=== PATIENT | male | born 1965 | race Caucasian/White ===

== ENCOUNTER 2018-06-06 19:06 | Outpatient (REF) | payer MEDICARE, SELFPAY ==
[2018-06-06 19:33] LABS: Anion Gap 5.7 mmol/L (3-11); BUN 18 mg/dL (7-18); CO2 28.3 mmol/L (21.0-32.0); CREATININE 0.79 mg/dL (0.70-1.30); Calcium 8.6 mg/dL (8.5-10.1); Chloride 104 mmol/L (98-107); Glucose 87 mg/dL (70-100); Potassium 4.1 mmol/L (3.5-5.1); Sodium 138 mmol/L (136-145)
[2018-06-11 13:25] LABS: ALT 35 U/L (12-78)
== END 2018-06-06 19:26 ==
LOC: NCHCN 19:06
PROVIDERS: PCP Physician Assistant Medical; Visit Provider Internal Medicine
DX: E78.5 Hyperlipidemia, unspecified (principal); F43.29 Adjustment disorder with other symptoms; Z87.820 Personal history of traumatic brain injury
CPT/HCPCS: 80048; 84460

== ENCOUNTER 2018-09-09 16:00 | Outpatient (REF) | payer MEDICARE, SELFPAY ==
[2018-09-13 11:57] LABS: Amphetamine Negative ng/mL (Cutoff: 25); Amphetamines Interpretation Negative.; MDA (Ecstasy Metabolite) Negative ng/mL (Cutoff: 25); MDMA (Ecstasy) Negative ng/mL (Cutoff: 25); Methamphetamine Negative ng/mL (Cutoff: 25); Phentermine Negative ng/mL (Cutoff: 25); Pseudoephedrine/Ephedrine Negative ng/mL (Cutoff: 25)
== END 2018-09-09 16:20 ==
LOC: NCHCN 16:00
PROVIDERS: PCP Physician Assistant Medical; Visit Provider Internal Medicine
DX: Z51.81 Encounter for therapeutic drug level monitoring (principal); F15.20 Other stimulant dependence, uncomplicated
CPT/HCPCS: 80324

== ENCOUNTER 2019-06-09 16:16 | Outpatient (REF) | payer MEDICARE, SELFPAY ==
[2019-06-09 18:59] LABS: HCT 42.6 % (40.0-50.0); HGB 14.4 g/dL (13.5-17.5); Mean Corp. HGB Concentration 33.8 g/dL (32.0-36.0); Mean Corpuscular Hemoglobin 30.4 pg (27.0-33.0); Mean Corpuscular Volume 90.1 fL (80-95); Platelet Count 275 x1000/uL (130-400); RBC 4.73 m/cumm (4.50-6.00); RBC Distribution Width 12.5 % (11.8-14.1); White Blood Cell Count 7.19 k/cumm (4.4-10.8)
[2019-06-09 20:04] LABS: TSH 2.24 uIU/mL (0.36-3.74)
[2019-06-16 20:51] LABS: Methylphenidate 60 ng/mL; Ritalinic Acid >10000 ng/mL
== END 2019-06-09 16:36 ==
LOC: NCHCN 16:16
PROVIDERS: PCP Physician Assistant Medical; Visit Provider Internal Medicine
DX: R53.83 Other fatigue (principal); F43.29 Adjustment disorder with other symptoms
CPT/HCPCS: 80360; 85027; 84443

== ENCOUNTER 2020-05-19 17:45 | Outpatient (REF) | payer MEDICARE, SELFPAY ==
[2020-05-19 22:52] LABS: ALT 39 U/L (16-63); Anion Gap 7.4 mmol/L (3-11); BUN 13 mg/dL (7-18); CO2 27.6 mmol/L (21.0-32.0); CREATININE 0.72 mg/dL (0.70-1.30); Calcium 8.9 mg/dL (8.5-10.1); Chloride 106 mmol/L (98-107); Glucose 116 mg/dL (74-106); LDL CHOLESTEROL 64 mg/dL (<100); Potassium 3.8 mmol/L (3.5-5.1); Sodium 141 mmol/L (136-145)
== END 2020-05-19 18:05 ==
LOC: NCHCN 17:45
PROVIDERS: PCP Physician Assistant Medical; Visit Provider Internal Medicine
DX: E66.3 Overweight (principal); M54.5 Low back pain
CPT/HCPCS: 80048; 83721; 84460

== ENCOUNTER 2020-11-12 18:45 | Outpatient (REF) | payer MEDICARE, SELFPAY ==
[2020-11-15 12:52] LABS: COVID-19 RT-PCR UVMMC Result Negative (Negative)
== END 2020-11-12 18:46 | disposition home or self-care (01) ==
LOC: NCHCN 18:45
PROVIDERS: PCP Physician Assistant Medical; Visit Provider Internal Medicine
DX: Z20.822 Contact with and (suspected) exposure to COVID-19 (principal)
CPT/HCPCS: U0003

== ENCOUNTER 2021-08-24 20:38 | Outpatient (REF) | payer MEDICARE, SELFPAY ==
[2021-08-24 21:19] LABS: ALT 34 U/L (16-63); Anion Gap 7.4 mmol/L (3-11); BUN 17 mg/dL (7-18); CO2 29.6 mmol/L (21.0-32.0); CREATININE 0.8 mg/dL (0.70-1.30); Calcium 8.4 mg/dL (8.5-10.1); Chloride 106 mmol/L (98-107); Glucose 107 mg/dL (74-106); LDL CHOLESTEROL 72 mg/dL (<100); Potassium 4.3 mmol/L (3.5-5.1); Sodium 143 mmol/L (136-145)
== END 2021-08-24 20:39 | disposition home or self-care (01) ==
LOC: LBN 20:38
PROVIDERS: PCP Physician Assistant Medical; Visit Provider Internal Medicine
DX: I10 Essential (primary) hypertension (principal); E78.5 Hyperlipidemia, unspecified
CPT/HCPCS: 80048; 83721; 84460

== ENCOUNTER 2022-12-21 15:37 | Outpatient (REF) | payer MEDICARE, SELFPAY ==
[2022-12-21 19:44] LABS: ALT 32 U/L (16-63); Anion Gap 7.3 mmol/L (3-11); BUN 15 mg/dL (7-18); C-Reactive Protein 0.59 mg/dL (0.0-0.3); CO2 25.7 mmol/L (21.0-32.0); Calcium 8.9 mg/dL (8.5-10.1); Chloride 105 mmol/L (98-107); Estimated GFR 87.78 (mL/min/1.73m2); Glucose 126 mg/dL (74-106); Potassium 3.9 mmol/L (3.5-5.1); Sodium 138 mmol/L (136-145)
[2022-12-21 20:06] LABS: Calculated LDL 58 mg/dL (<100); Cholesterol 127 mg/dL (<200); HDL Cholesterol 56 mg/dL (40-60); Triglyceride 65 mg/dL (<150)
== END 2022-12-21 15:38 | disposition home or self-care (01) ==
LOC: NCHCN 15:37
PROVIDERS: PCP Physician Assistant Medical; Visit Provider Internal Medicine
DX: I10 Essential (primary) hypertension (principal); F43.29 Adjustment disorder with other symptoms; I63.89 Other cerebral infarction
CPT/HCPCS: 80048; 80061; 84460; 86140

== ENCOUNTER 2023-12-17 13:15 | Outpatient (REF) | payer MEDICARE, SELFPAY ==
[2023-12-17 20:07] LABS: ALT 35 U/L (16-63); Anion Gap 7.1 mmol/L (3-11); BUN 13 mg/dL (7-18); CO2 27.9 mmol/L (21.0-32.0); CREATININE 0.8 mg/dL (0.70-1.30); Calcium 8.7 mg/dL (8.5-10.1); Chloride 103 mmol/L (98-107); Creatine Kinase 205 U/L (39-308); Estimated GFR 102.58 (mL/min/1.73m2); Glucose 115 mg/dL (74-106); Potassium 3.7 mmol/L (3.5-5.1); Sodium 138 mmol/L (136-145); TSH 1.94 uIU/Ml (0.36-3.74)
[2023-12-18 18:27] LABS: PSA, Diagnostic 0.7 ng/mL (<=3.5)
[2023-12-18 18:58] LABS: Hepatitis C Ab w Rflx HCV PCR Negative (Negative)
[2023-12-18 19:00] LABS: HIV-1/2 Ag & Ab Screen Negative (Negative)
== END 2023-12-17 13:16 | disposition home or self-care (01) ==
LOC: NCHCN 13:15
PROVIDERS: PCP Physician Assistant Medical; Visit Provider Internal Medicine
DX: R73.9 Hyperglycemia, unspecified (principal); Z11.4 Encounter for screening for human immunodeficiency virus [HIV]; I10 Essential (primary) hypertension
CPT/HCPCS: 80048; 82550; 86803; 87389; 83036; 84153; 84443; 84460

== ENCOUNTER 2025-03-18 10:03 | Emergency (ER) | payer MEDICARE, SELFPAY ==
[2025-03-18 10:18] VITALS: BP 157/78; PULSE 64; RESP 18; TEMP 36.6; O2SAT 97
--- NOTE | 2025-03-18 10:38 | ED.GENADUL_ITS ---
Discharge Plan Disposition Patient Disposition: Home Condition: Good Discharge Details Clinical Impression: Left arm weakness, Left leg weakness, Alterations of sensations Primary Care Provider: Adam Finch ED Provider: Yaquelin Bolivar Home Meds and New Rx's Prescriptions: Continued epinephrine 0.3 mg/0.3 mL auto-injector 0.3 mg subcut ONCE PRN Patient Comments: USE DIRECTED FOR BEE STING ibuprofen 600 mg tablet 600 mg PO Q6H PRN rosuvastatin 10 mg tablet 10 mg PO DAILY bupropion HCl 150 mg tablet extended release 24 hr 150 mg PO DAILY Patient Comments: TAKE 1 TABLET BY MOUTH ONCE DAILY methylphenidate HCl 30 mg capsule, ER biphasic 30-70 30 mg PO DAILY Discharge Instructions Instructions: Paresthesia (DC) Additional Instructions: As we discussed, your MRI and CTA are reassuring here today. No evidence to suggest a stroke. However, I am concerned that you may have a issue with your cervical spine such as a bulging disc. I have spoken with your primary care who is going to help arrange for a follow-up MRI of your cervical spine. Please continue to monitor your symptoms. Please avoid activities that exacerbate these at all. Please follow-up with primary care in 1 week for reevaluation. If you develop any new or worsening symptoms please seek care urgently once again. Referrals: Garrick Steele [ NON-[facility] STAFF PHYSICIAN, Medicine] Discharge Data Discharge Date/Time-TO BE ENTERED AT DEPARTURE: 03/18/25 16:28 HPI General Date/Time Provider Initiated Documentation: 03/18/25 10:38 . Limitations to Documentation: no limitations . Information obtained by: patient and RN notes reviewed . History of Present Illness 59 year old M presents to the emergency department with the chief complaint of left upper and lower extemity numbness and weakness, described as mild, Quality is described as other (denies any pain), and is localized to the left, upper extremity and lower extremity. Patient started experiencing this week(s) (3) and it has been constant. No relieving factors improve symptom(s), No exacerbating factors reported . Patient notes weakness; denies chest pain, cough, fever/chills, loss of appetite, nausea/vomiting, rash and shortness of breath. Patient did receive the following treatments prior to arrival, none Related Data Home Medications ?Medication ?Instructions ?Recorded ?Confirmed bupropion HCl 150 mg 24 hr tablet, 150 mg PO DAILY 06/0403/18/25 extended release epinephrine 0.3 mg/0.3 mL 0.3 mg subcut ONCE PRN 03/1803/18/25 injection, auto-injector ibuprofen 600 mg tablet 600 mg PO Q6H PRN 03/18/25 0 03/18/25 methylphenidate HCl 30 mg biphasic 30 mg PO DAILY 06/0403/18/25 30-70 capsule,extended release rosuvastatin 10 mg tablet 10 mg PO DAILY 03/18/2506/04 Allergies Allergy/AdvReac Type Severity Reaction Status Date / Time bee venom protein (honey bee) Allergy Anaphylaxis Verified 03/18/25 10:22 General Stated Complaint: GenMedical ENMANUEL: 3 Review of Systems Constitutional Constitutional: Reports as per HPI, Denies chills, Denies fever(s) and Denies frequent falls Eyes Eyes: Reports as per HPI and Denies change in vision ENT Ears, Nose, Mouth, and Throat: Denies vertigo and Denies neck pain Cardiovascular Cardiovascular: Reports as per HPI, Denies chest pain, Denies lightheadedness, Denies dyspnea and Denies dyspnea on exertion Respiratory Respiratory: Reports as per HPI, Denies chest congestion, Denies cough, Denies dyspnea and Denies dyspnea on exertion Gastrointestinal Gastrointestinal: Reports as per HPI, Denies abdominal pain, Denies change in bowel habits, Denies nausea and Denies vomiting Genitourinary Genitourinary: Reports system reviewed and no additional complaints, except as documented (denies change in urinary habits) Musculoskeletal Musculoskeletal: Reports as per HPI, Denies myalgias, Denies muscle cramps and Denies neck pain Integumentary/Breasts Skin/Breast: Reports as per HPI and Denies rash Neurologic Neurologic: Reports as per HPI, Denies abnormal movements, Denies abnormal speech, Denies behavioral changes, Denies confusion, Denies vertigo and Denies frequent falls Psychiatric Psychiatric: Denies behavioral changes and Denies confusion Exam Const General: cooperative, healthy appearing, no acute distress, well developed and well groomed Nutritional Appearance: average body habitus and well nourished Orientation: alert, awake and oriented x3 HENMT Head: normal to inspection, no palpable skull fracture, normocephalic and atraumatic Ears: hearing grossly normal bilaterally Mouth: oral mucosae normal and moist mucous membranes Throat: posterior oropharynx normal Eyes General: appearance normal, both eyes and all related structures Alignment and Position: alignment normal Periorbital: periorbital findings normal Eyelids: eyelids normal Sclera: sclerae normal Cornea: corneas normal Pupils: PERRL EOM: EOM intact bilaterally Neck Neck: normal visual inspection, full ROM and no lymphadenopathy Resp Effort & Inspection: normal respiratory effort, able to speak in complete sentences and no respiratory distress Auscultation: clear to auscultation bilaterally, no rales, no rhonchi and no wheezes Cardio Rate: regular rate Rhythm: regular rhythm Heart Sounds: S1 normal and S2 normal Back/Spine/Pelvis Cervical Spine: normal cervical lordosis and cervical ROM normal Skin General skin exam: no rashes or lesions noted Neuro General: patient alert, patient awake and patient oriented x3 Cranial Nerves: CN's II-XI intact bilaterally Cognition: normal cognition Speech: speech normal Gait: normal gait Motor: no pronator drift, no movement abnormalities noted, no fasciculations and muscle tone abnormal (strength decreased int eh left upper and lower extremities compared to righ) Sensory Exam: no sensory deficits noted DTR's: Rt Patellar: 2+, Lt Patellar: 2+, Rt Ankle: 2+ and Lt Ankle: 2+ Plantar Reflexes: Downgoing: bilateral Coordination: muetth-so-owkh test normal, Romberg test normal, Does not sway with eyes open and rapid alternating movement UE normal Extrem General: normal to inspection, capillary refill normal, no pedal edema and no calf tenderness Course Vital Signs Vital signs: Vital Signs Temperature 36.6 C 03/18/25 10:18 Pulse 64 03/18/25 10:18 Respiratory Rate 18 03/18/25 10:18 Blood Pressure 157/78 H 03/18/25 10:18 Pulse Oximetry 97 03/18/25 10:18 Temperature 36.6 C 03/18/25 10:18 Pulse 64 03/18/25 10:18 Respiratory Rate 18 03/18/25 10:18 Blood Pressure 157/78 H 03/18/25 10:18 Pulse Oximetry 97 03/18/25 10:18 Pain Level 6 03/18/25 10:18 Medical Decision Making Patient is a pleasant 59-year-old gentleman presenting today with chief complaint of left-sided weakness and altered sensation. His past medical history significant for CVA which was deemed to be a provoked incident after having arm trauma, no longer on anticoagulation, also his history of TBI. He reports that the left-sided sensory changes began about 3 weeks ago, initially just to the left leg. Subsequently developed some weakness in the left lower leg as well as some testicular sensory changes. He has not had any change in his bowel or bladder habits. No incontinence or difficulty initiating. Also started having some left arm numbness, tingling and weakness about 2 weeks ago. He reports that now he is having some back discomfort, does have history of spinal surgery. He denies any headache. No visual change. He does have chronic speech alteration which he associates with his previous CVA, no acute change in this. He denies any confusion or difficulty with word finding. States that his balance has been off but unclear if this associated with tripping with balance or from the left leg being weaker and alteration in gait. On exam, patient appears nontoxic. Resting comfortably no acute distress. Normal cardiac and pulmonary exam. He denies any palpitation, chest pain or shortness of breath. Neuroexam significant for weakness in the left lower extremity. Reflexes are equal bilaterally in upper and lower extremities. Sensation is intact in upper and lower extremities although he does describe this altered sensation in both the left upper and lower extremity patient is able to ambulate but does have some difficulty with the left leg and having some weakness. His Romberg is normal. Normal Babinski. With the patient's left-sided deficits, and primarily concern for recurrent CVA. Patient is well outside of the window for tPA as he is been having the symptoms for 3 weeks. However, will obtain labs, CTA of the head and neck to evaluate for any potential LVO or physical damage. Patient is not anticoagulated. He did take his medications this morning.. Labs reviewed, no acute abnormality. CTA reviewed by radiologist. She noted 50% stenosis left ICA, left MCA also severely narrowed. Old infarcts, appears older than three weeks per radiologist. This would not fit with his clinic picture as his symptoms are on the ipsilateral side. Will consult with [facility], they should have his previous imaging for comparison. Patient seen by teleneuro with [facility], they advised ASA and MRI. Recommended morning lipid profile, starting statin. Recommend echo but advised that, based on MR, this could be outpatient. Patient has had some muscles spasms to the left lower back, palpable. No midline pain. He has had lumbar surgery int eh past- incisions have healed well. On discussion, this discomfort began since his LLE weakness has increased- likely associated with antalgic gait and muscle spasm. Given APAP and LIdoderm patch. MRI reviewed by radiologist, he called and again reported the old infarct left side but nothing on the right. Again, with kezia symptoms being on the left, his old infarct on kezia left should not explain his acute weakness on the left upper and lower extremities. Will consult with [facility] neurology regarding atypical presentation and update regarding MRI findings. Consulted with Dr. Huddleston from [facility] did not feel appropriate ot add anything new from tele-neuro. Advised outpatient MRI is fine for c-spine evaluation. With no indication of CVA at this time, will hold off on dualantiplatelet that had been initially discussed. However, teleneuro did feel that anyone with prior CVA should at least be on ASA so will have patient continue wiht this recommendation. Called patients PCP, Dr. Steele regarding presentation and relay recommendations for MRI of his c-spine. discussed with patient at [facility]- he feels safe to go home and f/u with PCP. No sigfnicant deterioration over the past 3 weeks but we did discuss the potential of things worsening if appropriate followup is not completed. Pain improved some with APAP and Lidoderm patch. Encouraged supportive care, that he monitor symptoms closely. Return precautions discussed. All of his questions and concerns were addressed, he is in agreement with this [facility] All Active Problems (Updated 03/18/25 @ 16:04 by KRISTINE Powell) Alterations of sensations (Acute) Left leg weakness (Acute) Left arm weakness (Acute) Social History Smoking/Tobacco Use Status: Never Smoking risk assessment performed?: Yes Alcohol Intake: never Substance use type: does not use Housing: house Do you feel safe at home: Yes Do you feel safe in your relationship?: Yes
--- NOTE | 2025-03-18 11:00 | DI.RAD_ITS ---
Exam(s) XR CHEST 2V PA LATERAL EXAM: XR CHEST 2V PA LATERAL CLINICAL HISTORY: left sided weakness TECHNIQUE: 2D digital imaging was performed. Two views. COMPARISON: No exams were available for comparison FINDINGS: HEART: Normal size. Aorta: Not dilated. PULMONARY VASCULATURE: Normal. MEDIASTINUM: Unremarkable. LUNGS: Clear. PLEURAL SPACE: No pleural effusion or pneumothorax. BONE:Unremarkable for age. SOFT TISSUES: Unremarkable. IMPRESSION: No acute abnormality. DATA REPOSITORY: RADIATION DOSE DELIVERED:
--- NOTE | 2025-03-18 11:00 | RT.EKG_ITS ---
APPROVED REPORT Exam: Resting ECG Reason for Exam: possible cva Patient Location: E HR:47 bpm ECG Measurements Heart Rate 47 AXIS SD 153 P 55 QRSd 126 QRS -28 QT 457 T 27 QTc 406 Conclusion Sinus bradycardia 47 RBBB no stemi
--- NOTE | 2025-03-18 11:00 | DI.CT_ITS ---
Exam(s) CT BRAIN NECK CTA EXAM: CT BRAIN NECK CTA CLINICAL HISTORY: left sided weakness, altered sensation x 3wks. TECHNIQUE: Imaging Protocol: Axial CT angiography was performed with multi- slice acquisition and multi-planar and MIP reconstructions. CONTRAST MATERIAL: Intravenous: Omnipaque 350 Contrast volume:100 ml COMPARISON: No exams were available for comparison FINDINGS: CT Head W/O and W contrast: Ventricles and Extra axial spaces: Normal in size and morphology for the patient's age. Hemorrhage: None. Cerebral parenchyma: No evidence of mass. Large area of decreased attenuation is noted in the left frontal as well as left parietal lobes, both in the middle cerebral artery distribution. Midline shift: None. Brainstem/Cerebellum: No acute findings.. Calvarium: Normal. Visualized Paranasal sinuses/Mastoids: Clear. Soft Tissues: Unremarkable. Enhancement: Normal. Venous sinuses are patent. CTA Brain W: Internal Carotid Arteries: Right: No aneurysm, occlusion or significant stenosis. Left: No aneurysm, occlusion or significant stenosis. Middle Cerebral Arteries: Right: No aneurysm, occlusion or significant stenosis. Left: No aneurysm. Significantly decreased diameter of the M1 segment in D decreased perfusion to distal branches. Anterior Cerebral Arteries: Right: No aneurysm, occlusion or significant stenosis. Left: No aneurysm, occlusion or significant stenosis. Posterior cerebral Arteries: Right: No aneurysm, occlusion or significant stenosis. Left: No aneurysm, occlusion or significant stenosis. Vertebral Arteries: Right: No aneurysm, occlusion or significant stenosis. Left: No aneurysm, occlusion or significant stenosis. Basilar Artery: No aneurysm, occlusion or significant stenosis. CTA Neck W: Common Carotid: Right: No dissection, occlusion or significant stenosis. Left: No dissection, occlusion or significant stenosis. External Carotid: Right: No dissection, occlusion or significant stenosis. Left: No dissection, occlusion or significant stenosis. Internal Carotid: Right: No dissection, occlusion or significant stenosis. Left: Noncalcified plaque noted of the proximal internal carotid artery causing approximately 50 percent stenosis. No dissection, occlusion or significant stenosis. Vertebral Artery: Right: No dissection, occlusion or significant stenosis. Left: No dissection, occlusion or significant stenosis. Lung Apices: No acute findings. Bones: No acute abnormality. Advanced degenerative changes are present in the cervical spine Soft Tissues: Normal. IMPRESSION: 1. CTA brain: Severe narrowing of the left middle cerebral artery and diminished caliber of branch segments. 2. Head CT: Areas of old infarct in the left frontal and left parietal lobes. No acute infarct is visible. 3. CTA neck: Focal noncalcified plaque at the proximal left internal carotid artery causing approximately 50 percent stenosis. Results of this exam have been verbally communicated with the emergency department provider. RADIATION DOSE DELIVERED: Total DLP DATA REPOSITORY: All CT scans at this facility are submitted to the National Radiology Data Registry (NRDR) Dose Index Registry (DIR) with the [employer] (ACR). RADIATION OPTIMIZATION: All CT scans at this facility use at least one of these dose optimization techniques: automated exposure control; mA and/or kV adjustment per patient size (includes targeted exams where dose is matched to clinical indication); or iterative reconstruction.
[2025-03-18 11:21] LABS: Abs Immature Grans 0.01 10^3/uL (0.0-0.06); HCT 44.5 % (40.0-50.0); HGB 14.8 g/dL (13.5-17.5); Immature Grans % 0.2 %; MCH 29.8 pg (27.0-33.0); MCHC 33.3 % (32.0-36.0); MCV 90 fL (80-95); MPV 9.5 fL (8.0-11.0); Platelet Count 245 10^3/uL (130-400); RBC 4.96 10^6/uL (4.36-5.78); RDW 12.3 % (11.8-14.1); RDW-SD 39.8 fL; WBC 6.18 10^3/uL (4.4-10.8)
[2025-03-18 11:39] LABS: ALT 29 U/L (16-63); AST 18 U/L (15-37); Albumin 4.0 g/dL (3.4-5.0); Alkaline Phosphatase 99 U/L (46-116); Anion Gap 8.9 mmol/L (3-11); BUN 19 mg/dL (7-18); Bilirubin, Total 0.5 mg/dL (0.2-1.0); CO2 27.1 mmol/L (21.0-32.0); Calcium 8.9 mg/dL (8.5-10.1); Chloride 105 mmol/L (98-107); Estimated GFR 106.14 (mL/min/1.73m2); Glucose 110 mg/dL (74-106); Magnesium 1.8 mg/dL (1.8-2.4); Potassium 4.0 mmol/L (3.5-5.1); Sodium 141 mmol/L (136-145); Total Protein 7.1 g/dL (6.4-8.2); Troponin I 10 ng/L (<or=76)
[2025-03-18] MEDS: Normal Saline - Diluent 50 ML VIAL IJ (12:19)
[2025-03-18] MEDS: Omnipaque 350 MG/ML 100 ML BTL IJ (12:21)
[2025-03-18 12:51] VITALS: BP 132/57
--- NOTE | 2025-03-18 13:15 | DI.MRI_ITS ---
Exam(s) MR BRAIN WO EXAM: MR BRAIN WO CLINICAL HISTORY: concern for CVA, left sided deficit TECHNIQUE: Multiplanar multisequence MRI of the brain was performed. COMPARISON: CT CT BRAIN NECK CTA from 03/18/2025 FINDINGS: CEREBRAL PARENCHYMA: No evidence of intracranial hemorrhage. There is prominent area of signal abnormality in the left frontal-parietal region-territory of the left middle cerebral artery. Flow void in the left middle cerebral artery is noted to be deficient beyond the origin of this vessel. There is mild dilatation of the ipsilateral left lateral ventricle. There is no restricted diffusion, implying that this is not an acute event and is late subacute or chronic. There is no evidence of hemorrhage, intra or extra-axial. No shift of midline structures. No significant signal abnormality in the right-side of the brain. PITUITARY GLAND: No mass nor parasellar abnormality. No obvious abnormality in the cavernous sinuses. FLOW VOIDS: Left middle cerebral artery is occluded at its origin. PARANASAL SINUSES: Mucosal thickening/fluid is noted in left side of the sphenoid sinus. Other paranasal sinuses are clear as are the mastoid air cells. ORBITS: No obvious findings. IMPRESSION: There is infarction in the territory of the left middle cerebral artery which is not acute as there is no restricted diffusion. Probably late subacute. No hemorrhage. No shift. The left middle cerebral artery is occluded at its origin. Report called by myself to ER physician 03/18/2025 at 2:45 p.m. DATA REPOSITORY:
[2025-03-18] MEDS: Aspirin 325 MG TAB PO (13:37)
[2025-03-18] MEDS: Acetaminophen 500 MG TAB 1000 MG PO (14:55)
[2025-03-18] MEDS: Lidocaine 5% Patch 1 PATCH TP (14:56)
[2025-03-18 16:08] VITALS: BP 166/82; PULSE 49; RESP 16; TEMP 37; O2SAT 98
== END 2025-03-18 16:28 | disposition home or self-care (01) ==
PROVIDERS: Emergency Provider Physician Assistant; PCP Physician Assistant Medical
DX: M79.605 Pain in left leg (principal); R29.898 Other symptoms and signs involving the musculoskeletal system; R20.8 Other disturbances of skin sensation; I10 Essential (primary) hypertension
CPT/HCPCS: 99284; 99285; 36415; 70496; 70498; 80053; 93005; 70551; 71046; 83735; 84484; 85025; 93010; J3490

== ENCOUNTER 2025-04-20 01:39 | Outpatient (CLI) | payer MEDICARE, SELFPAY ==
--- NOTE | 2025-04-20 | DI.MRI_ITS ---
Exam(s) MR CERVICAL SPINE WO EXAM: MR CERVICAL SPINE WO CLINICAL HISTORY: G95.9 Disease of spinal cord, unspecified, LUEW LLE weakness TECHNIQUE: Multiplanar multisequence MRI of the cervical spine was performed without intravenous contrast. COMPARISON: CT CT BRAIN NECK CTA from 03/18/2025 FINDINGS: BONES: Vertebral body heights are maintained. Some degenerative straightening of the normal cervical lordosis. Facet degenerative changes are present at multiple levels. Bone marrow signal intensity is within normal limits. CERVICAL CORD: Craniovertebral junction is unremarkable. The cervical cord is normal size and signal intensity. SOFT TISSUES: Unremarkable. C2-3: No disc herniation or bulge is identified. No evidence of neural foraminal narrowing. No significant central canal stenosis. C3-4: Mild loss of disc height. Endplate osteophytes causing right neural foraminal narrowing. No significant central canal stenosis. C4-5: Disc height is maintained. No significant disc bulging.. No evidence of neural foraminal narrowing. No significant central canal stenosis. C5-6: Moderate a severe loss of disc height. Broad-based disc osteophytes. Bilateral neural foraminal narrowing, greater on the right. No significant central canal stenosis. C6-7: Severe loss of disc height. Broad-based disc osteophytes. Right neural foraminal narrowing. No significant central canal stenosis. C7-T1: No disc herniation or bulge is identified. No evidence of neural foraminal narrowing. No significant central canal stenosis. IMPRESSION: Degenerative changes greatest at C5-6 and C6-7 causing right greater than left neural foraminal narrowing. DATA REPOSITORY:
== END 2025-04-20 01:59 ==
LOC: DI 01:39
PROVIDERS: PCP Physician Assistant Medical; Visit Provider Internal Medicine
DX: G95.9 Disease of spinal cord, unspecified (principal)
CPT/HCPCS: 72141